=== PATIENT | female | born 1995 | race Caucasian/White ===

== ENCOUNTER 2016-11-14 22:02 | Outpatient (CLI) | payer BC, OTHER ==
[2016-11-14 23:47] LABS: APPEARANCE,URINE SLIGHTLY-CLOUDY; BILIRUBIN,URINE NEGATIVE (NEGATIVE); GLUCOSE, URINE NEGATIVE (NEGATIVE); KETONES,URINE NEGATIVE (NEGATIVE); LEUKOCYTE ESTERASE,URINE TRACE (NEGATIVE); NITRITE,URINE NEGATIVE (NEGATIVE); PROTEIN,URINE NEGATIVE (NEGATIVE); URINE SPECIFIC GRAVITY 1.028
[2016-11-14 23:48] LABS: CALCIUM OXALATE CRYSTALS,URINE TOO NUMEROUS TO CNT /HPF
[2016-11-15 00:12] LABS: URINE BARBITURATES SCREEN NEGATIVE; URINE METHADONE SCREEN NEGATIVE; URINE PHENCYCLIDINE SCREEN NEGATIVE
--- NOTE | 2016-11-15 04:47 | L&D Current Admission ---
Current Admit Datetime Report Generated by CPN: 11/15/2016 04:45 ADMISSION INFORMATION Chief Complaint: Vaginal Bleeding (11/14/2016 22:45:Carolina Domingo RN)
--- NOTE | 2016-11-15 04:47 | L&D Flow Sheet ---
LD Flowsheet Datetime Report Generated by CPN: 11/15/2016 04:45 Datetime: 11/15/2016 01:14 Additional Nursing Comments: pt stable, ambulatory, leaving unit accompanied by (Carolina Chayo, RN) Datetime: 11/15/2016 01:10 Teaching Instructional Method: Verbal; Written; Patient Instructed; Family/Support Person Instructed; Verbalized Understanding (Carolina Domingo RN) Plan of Care: Plan of Care Discussed (Carolina Domingo RN) Teaching Comments: labor care notes, round ligament pain care notes and [facility]A-approved medication list given. All pt and questions answered. Pt given renae bottle and ice packs for vaginal abrasion. Pt encouraged to move appointment scheduled for 11/27 up to next week. Pt encouraged to discuss HSV culture, constipation issues, and desire for elective primary c/s at upcoming appointment. (Carolina Domingo RN) Datetime: 11/15/2016 01:05 Patient Care Comments: HSV swab collected per orders from Dr Patrick (Carolina Domingo RN) Datetime: 11/15/2016 01:00 Communication Comments: Report to Dr Patrick re: cervical length 3.3 cm/closed, anterior placenta. Orders received for pt d/c to home with bleeding precautions and follow-up in office next week. (Carolina Chayo, RN) Datetime: 11/15/2016 00:40 Additional Nursing Comments: pt returned from u/s accompanied by WEBSPHERE MESSAGE BROKER DEVELOPER, monitors need not be reapplied per Dr Patrick (Carolina Chayo, RN) Datetime: 11/15/2016 00:16 Uterine Activity Monitor Mode: External (Carolina Chayo, RN) Frequency (min): None (Carolina Chayo, RN) Resting Tone (Palpate): Relaxed (Carolina Chayo, RN) Patient Care Comments: monitors discontinued, pt to u/s accompanied by WEBSPHERE MESSAGE BROKER DEVELOPER (Carolina Chayo, RN) Datetime: 11/15/2016 00:00 Uterine Activity Monitor Mode: External (Carolina Chayo, RN) Frequency (min): Irritability (Carolina Chayo, RN) Quality: Mild (Carolina Chayo, RN) Resting Tone (Palpate): Relaxed (Carolina Chayo, RN) Patient Care Procedures: Sterile Speculum Exam (Carolina Domingo RN) Provider Reviewed Strip: Yes (Carolina Domingo RN) Patient Care Comments: sterile speculum exam per Dr Patrick to visualize cervix prior to pt traveling to [facility]. Cervix visually closed and no bleeding from cervix noted by Dr Patrick. approx 1 cm long abrasion noted on right inner labia. Pt and suspect this was from intercourse this AM at 0900, pt noticed this spot afterwards. Will perform HSV swab on this spot per orders from Dr Patrick (Carolina Domingo RN) Communication Communication: Provider at Bedside (Carolina Domingo RN) Communication Comments: Dr Patrick at bedside (Carolina Domingo RN) Datetime: 11/14/2016 23:51 Patient Care Comments: pt sitting up in bed (Carolina Chayo, RN) Plan of Care: Plan of Care Discussed (Carolina Chayo, RN) Datetime: 11/14/2016 23:38 Communication Comments: call placed to u/s, estimated 30-40 minutes for pt to be seen (Carolina Chayo, RN) Datetime: 11/14/2016 23:30 Uterine Activity Monitor Mode: External (Carolina Chayo, RN) Frequency (min): Irritability (Carolina Chayo, RN) Quality: Mild (Carolina Chayo, RN) Duration (sec): 20-60 (Carolina Chayo, RN) Resting Tone (Palpate): Relaxed (Carolina Chayo, RN) Contraction Comments: Pt reports no discomfort (Carolina Chayo, RN) Datetime: 11/14/2016 23:03 Vital Signs NBP Sys/Aliza/Mean (mmHg): 107 (QS system process) : 60 (QS system process) : 79 (QS system process) Pulse: 78 (QS system process) Datetime: 11/14/2016 23:00 Uterine Activity Monitor Mode: External (Carolina Chayo, RN) Frequency (min): None (Carolina Chayo, RN) Resting Tone (Palpate): Relaxed (Carolina Chayo, RN) Datetime: 11/14/2016 22:51 Assessment A Comments: FHR doppler 146 (Carolina Chayo, RN) Datetime: 11/14/2016 22:45 Quality: abd soft (Carolina Chayo, RN) Pain Pain Scale: 0 (Carolina Chayo, RN) Pain Presence: None/Denies (Carolina Chayo, RN) Vaginal Exam Membrane Status: Intact (Carolina Chayo, RN) Vaginal Bleeding: Scant (Annotations: pt has not been wearing a pad, some blood when wiping throughout the day and some in underwear less than a dime sized; bleeding started today between 1438-4664) (Carolina Domingo RN) Maternal Assessment Level of Consciousness: Fully Conscious (Carolina Domingo RN) DTR's/Clonus: DTRs 2+; No Clonus (Carolina Domingo RN) Headache: Denies (Carolina Domingo RN) Nausea/Vomiting: Hx of Nausea/Vomiting (Annotations: zofran yesterday, some heaving the last few days ) (Carolina Domingo RN) RUQ Epigastric Pain: Denies (Carolina Domingo RN) Patient Position/Activity: Left Tilt (Carolina Domingo RN) Comfort Measures: Family Support (Carolina Domingo RN) Teaching Instructional Method: Verbal; Patient Instructed; Family/Support Person Instructed; Verbalized Understanding (Carolina Domingo RN) Plan of Care: Plan of Care Discussed (Carolina Domingo RN) Unit Routine: [place] to Room; Call Curiel; Bed (Carolina Domingo RN) Datetime: 11/14/2016 22:40 Communication Comments: Report to Dr Patrick re: pt presence, complaint. Orders received for u/s for placenta location/status and cervical length (Carolina Domingo RN)
--- NOTE | 2016-11-15 04:48 | L&D Discharge Summary ---
OB Discharge Summary Datetime Report Generated by CPN: 11/15/2016 04:45 DISCHARGE DIAGNOSIS Diagnosis/Symptoms: Vaginal Bleeding; False Labor Diagnoses/Symptoms Other: post-coital vaginal bleeding Gestation: 24.1 Parity: 0 DIET/ACTIVITY/RESTRICTIONS Diet: Regular Activity: Normal Activity TEACHING/INSTRUCTIONS/REFERRALS Instructions Given To: Pt, FOB Instructions Understood: Patient Verbalized Understanding; Support Person Verbalized Understanding Educational Materials- Other: labor, round ligament pain, [facility]A approved medication list DISCHARGE INFORMATION Discharged AMA: No Discharge Date/Time: 11/15/2016 01:14 Discharged To: Home Discharge Provider Name: Darnell Accompanied By: FOB Discharge Method: Ambulatory Condition: Stable FOLLOW UP INFORMATION Follow Up With: [facility] Follow Up On: As Scheduled Follow Up Phone Number: [facility] - Comments: See flowsheet for interventions, education, VS and lab results.
--- NOTE | 2016-11-15 04:48 | L&D General Admission ---
General Admit Datetime Report Generated by CPN: 11/15/2016 04:45 INFORMATION Patient Age: 21 (11/14/2016 22:14:QS system process) EDC: 03/05/2017 00:00 (11/14/2016 22:24:[facility], RN) : 2 (11/14/2016 22:24:Crystal Kaley, RN) Para: 0 (11/14/2016 22:24:Crystal Kaley, RN) CARE Primary Machine Maintenance Supervisor: [facility] (11/14/2016 22:24:Hetal Roche RN) Height (in): 60 (11/14/2016 22:34:QS system process) ALLERGIES Medication Allergy: Yes (11/14/2016 22:24:Carolina Domingo RN) Medication Allergies: hydrocodone (11/14/2016); egg (11/14/2016) (11/14/2016 22:33:QS system process) Latex Allergy: No Latex Allergies (11/14/2016 22:24:Carolina Domingo RN) Food Allergies: eggs (11/14/2016 22:24:Carolina Domingo RN) COMMUNICATION Primary Language: [place] Citizen (11/14/2016 22:24:Carolina Domingo RN) Medical Tx Preferred Language: [place] Citizen (11/14/2016 22:24:Carolina Domingo RN) DEMOGRAPHICS Address: [address] [place] [address] (11/14/2016 22:21:QS system process) Address: [place] [address] (11/14/2016 22:14:QS system process) Zipcode: [address] (11/14/2016 22:14:QS system process) Home (11/14/2016 22:21:QS system process) SSN: [id number] (11/14/2016 22:14:QS system process) Next of Kin Name: KHARI RAO (11/14/2016 22:21:QS system process) Next of Kin (11/14/2016 22:21:QS system process) Next of Kin Relationship: SPO (11/14/2016 22:21:QS system process) Date of : 1995 (11/14/2016 22:14:QS system process) Marital Status: (11/14/2016 22:21:QS system process) Sex: Female (11/14/2016 22:14:QS system process) Race: (11/14/2016 22:21:QS system process) Ethnicity: Non- or (11/14/2016 22:21:QS system process) Sabianist: None (11/14/2016 22:21:QS system process) DRUG AND ALCOHOL USE Alcohol: No (11/14/2016 22:24:Carolina Domingo RN) Cigarettes: Former Smoker. [id number] (11/14/2016 22:24:Carolina Domingo RN) Cigarette Comments: rare smoker prior to (11/14/2016 22:24:Carolina Domingo RN) Marijuana: No (11/14/2016 22:24:Carolina Domingo RN) Cocaine: No (11/14/2016 22:24:Carolina Domingo RN) Other Illicit Drugs: No (11/14/2016 22:24:Carolina Domingo RN) VACCINE HISTORY Influenza Vaccine: No (11/14/2016 22:24:Carolina Domingo RN) Influenza Date: egg allergy (11/14/2016 22:24:Carolina Domingo RN) Pneumococcal Vaccine: No (11/14/2016 22:24:Carolina Domingo RN) Tetanus Vaccine: Yes (11/14/2016 22:24:Carolina Domingo RN) Tdap Vaccine: Yes (11/14/2016 22:24:Carolina Domingo RN) Hepatitis B Vaccine: Yes (11/14/2016 22:24:Carolina Domingo RN) LABS Blood Type: A Positive (11/14/2016 22:24:Carolina Domingo RN) Antibody Screen: negative (11/14/2016 22:24:Carolina Domingo RN) Gonorrhea: Negative (11/14/2016 22:24:Carolina Domingo RN) Chlamydia: Negative (11/14/2016 22:24:Carolina Domingo RN) RPR/VDRL: Nonreactive (11/14/2016 22:24:Carolina Domingo RN) HIV Results: negative (11/14/2016 22:24:Carolina Domingo RN) Hepatitis B: Negative (11/14/2016 22:24:Carolina Domingo RN) Rubella: Immune (11/14/2016 22:24:Carolina Domingo RN) OB/PREVIOUS HISTORY History of Previous : No (11/14/2016 22:24:Carolina Domingo RN) History of Gestational Diabetes: No (11/14/2016 22:24:Carolina Domingo RN) History of PIH: No (11/14/2016 22:24:Carolina Domingo RN) History of Incompetent Cervix: No (11/14/2016 22:24:Carolina Domingo RN) History of Placenta Previa/Abrup: No (11/14/2016 22:24:Carolina Domingo RN) History of Macrosomia: No (11/14/2016 22:24:Carolina Domingo RN) History of IUGR: No (11/14/2016 22:24:Carolina Domingo RN) History of Hemorrhage: No (11/14/2016 22:24:Carolina Domingo RN) History of Loss/Stillborn: No (11/14/2016 22:24:Carolina Domingo RN) History of : No (11/14/2016 22:24:Carolina Domingo RN) History of D (Rh) Sensitization: No (11/14/2016 22:24:Carolina Domingo RN) History Recurrent Loss/Stillborn: No (11/14/2016 22:24:Carolina Domingo RN) History Depression/PP Depression: No (11/14/2016 22:24:Carolina Domingo RN) History of Uterine Anomaly/SAURABH: No (11/14/2016 22:24:Carolina Domingo RN) History of Infertility: No (11/14/2016 22:24:Carolina Domingo RN) History of ART Treatment: No (11/14/2016 22:24:Carolina Domingo RN) History of SAURABH: No (11/14/2016 22:24:Carolina Domingo RN) Comments Obstetrical History: G1: elective AB G2: current (11/14/2016 22:24:Carolina Domingo RN) MEDICAL HISTORY Med Hx Diabetes: No (11/14/2016 22:24:Carolina Domingo RN) Med Hx Hypertension: No (11/14/2016 22:24:Carolina Domingo RN) Med Hx Heart Disease: Yes (11/14/2016 22:24:Carolina Domingo RN) Med Hx Autoimmune Disorder: No (11/14/2016 22:24:Carolina Domingo RN) Med Hx Kidney Disease/UTI: Yes (11/14/2016 22:24:Carolina Domingo RN) Med Hx Neurologic/Epilepsy: Yes (11/14/2016 22:24:Carolina Domingo RN) Med Hx Psychiatric Disorders: No (11/14/2016 22:24:Carolina Domingo RN) Med Hx Hepatitis/Liver Disease: No (11/14/2016 22:24:Carolina Domingo RN) Med Hx Varicosities/Phlebitis: No (11/14/2016 22:24:Carolina Domingo RN) Med Hx Thyroid Dysfunction: Yes (11/14/2016 22:24:Carolina Domingo RN) Med Hx Trauma/Violence: No (11/14/2016 22:24:Carolina Domingo RN) Med Hx Blood Transfusion: No (11/14/2016 22:24:Carolina Domingo RN) Med Hx Pulmonary (Asthma,TB): Yes (11/14/2016 22:24:Carolina Domingo RN) Med Hx Breast: No (11/14/2016 22:24:Carolina Domingo RN) Med Hx DEICER TESTER Surgery: No (11/14/2016 22:24:Carolina Domingo RN) Med Hx Hospitalization/Surgery: Yes (11/14/2016 22:24:Carolina Domingo RN) Med Hx Anesthetic Complications: No (11/14/2016 22:24:Carolina Domingo RN) Med Hx Abnormal Pap Smear: Yes (11/14/2016 22:24:Carolina Domingo RN) Other Medical Diseases: Yes (11/14/2016 22:24:Carolina Domingo RN) Med Hx Significant Family Hx: No (11/14/2016 22:24:Carolina Domingo RN) Details of Med/Surg Hx: Heart: heart murmur, kidneys: cystitis neurologic: migranes thyroid: low TSH and thyroid cyst (is planning partial thyroidectomy after delivery) pulmonary: asthma, has rescue inhaler surgeries: kamron fundoplication surgery with 2 revisions;cholecystectomy; wisdom teeth removal; periesophageal hernia repair; tonsils and adenoids cyclic vomiting syndrome (CVS); chostochondritis- no meds; LGSIL 07/19 needs colpo after delivery; IBS, low vit D (11/14/2016 22:24:Carolina Domingo RN) INFECTIOUS HISTORY Inf Hx Gonorrhea: No (11/14/2016 22:24:Carloina Domingo RN) Inf Hx Chlamydia: No (11/14/2016 22:24:Carolina Domingo RN) Inf Hx Syphilis: No (11/14/2016 22:24:Carolina Domingo RN) Inf Hx HIV/AIDS: No (11/14/2016 22:24:Carolina Domingo RN) Inf Hx Human Papilloma Virus: No (11/14/2016 22:24:Carolina Domingo RN) Inf Hx Pt/Partner Genital Herpes: No (11/14/2016 22:24:Carolina Domingo RN) Inf Hx Tuberculosis/Exposure: No (11/14/2016 22:24:Carolina Domingo RN) Inf Hx Hepatitis B,C: No (11/14/2016 22:24:Carolina Domingo RN) Inf Hx Rash or Viral Illness: No (11/14/2016 22:24:Carolina Domingo RN) GENETIC HISTORY Gen Hx Age >=35 at NAVI: No (11/14/2016 22:24:Carolina Domingo RN) Gen Hx Thalassemia: No (11/14/2016 22:24:Carolina Domingo RN) Gen Hx Congenital Heart Defect: No (11/14/2016 22:24:Carolina Domingo RN) Gen Hx Neural Tube Defect: No (11/14/2016 22:24:Carolina Domingo RN) Gen Hx Down's Syndrome: No (11/14/2016 22:24:Carolina Domingo RN) Gen Hx Johnathan-Sachs: No (11/14/2016 22:24:Carolina Domingo RN) Gen Hx Mike: No (11/14/2016 22:24:Carolina Domingo RN) Gen Hx Familial Dysautonomia: No (11/14/2016 22:24:Carolina Domingo RN) Gen Hx Sickle Cell Disease/Trait: No (11/14/2016 22:24:Carolina Domingo RN) Gen Hx Hemophilia/Blood Disorder: No (11/14/2016 22:24:Carolina Domingo RN) Gen Hx Muscular Dystrophy: No (11/14/2016 22:24:Carolina Domingo RN) Gen Hx Cystic Fibrosis: No (11/14/2016 22:24:Carolina Domingo RN) Gen Hx [place] Chorea: No (11/14/2016 22:24:Carolina Domingo RN) Gen Hx Mental Retardation/Autism: No (11/14/2016 22:24:Carolina Domingo RN) Gen Hx Tested for Fragile X: No (11/14/2016 22:24:Carolina Domingo RN) Gen Hx Other Inher/Chromosomal: No (11/14/2016 22:24:Carolina Domingo RN) Gen Hx Maternal Metabolic DO: No (11/14/2016 22:24:Carolina Domingo RN) Gen Hx Pt Father or FOB Defect: No (11/14/2016 22:24:Carolina Domingo RN) Gen Hx Other Genetic History: No (11/14/2016 22:24:Carolina Domingo RN) Gen Hx Drugs/Meds since LMP: Yes (11/14/2016 22:24:Carolina Domingo RN) Gen Hx Medications: pnv, tylenol/benadryl/zofran/ albuterol prn, diclegis (11/14/2016 22:24:Carolina Domingo RN)
--- NOTE | 2016-11-15 04:48 | L&D Admission Assessment ---
LD ADM ASMT Datetime Report Generated by CPN: 11/15/2016 04:45 PATIENT ASSESSMENT Assessment Type: Triage (11/14/2016 22:45:Carolina Chayo, RN) WEIGHT Weight (lb): 143 (11/14/2016 22:34:QS system process) Weight (kg): 65.0 (11/14/2016 22:34:QS system process) PAIN Pain Scale: 0 (11/14/2016 22:45:Carolina Chayo, RN) Pain Presence: None/Denies (11/14/2016 22:45:Carolina Chayo, RN) CONTRACTIONS Frequency (min): None (11/15/2016 00:16:Carolina Chayo, RN) Frequency (min): Irritability (11/15/2016 00:00:Carolina Chayo, RN) Frequency (min): Irritability (11/14/2016 23:30:Carolina Chayo, RN) Frequency (min): None (11/14/2016 23:00:Carolina Chayo, RN) Duration (sec): 20-60 (11/14/2016 23:30:Carolina Chayo, RN) Quality: Mild (11/15/2016 00:00:Carolina Chayo, RN) Quality: Mild (11/14/2016 23:30:Carolina Chayo, RN) Quality: abd soft (11/14/2016 22:45:Carolina Chayo, RN) Resting Tone [place]: Relaxed (11/15/2016 00:16:Carolina Chayo, RN) Resting Tone [place]: Relaxed (11/15/2016 00:00:Carolina Domingo RN) Resting Tone [place]: Relaxed (11/14/2016 23:30:Carolina Domingo RN) Resting Tone [place]: Relaxed (11/14/2016 23:00:Carolina Domingo RN) Contraction Comments: Pt reports no discomfort (11/14/2016 23:30:Carolina Domingo RN) VAGINAL EXAM Membranes Status: Intact (11/14/2016 22:45:Carolina Domingo RN) NEURO Level of Consciousness: Fully Conscious (11/14/2016 22:45:Carolina Domingo RN) DTR's/Clonus: DTRs 2+; No Clonus (11/14/2016 22:45:Carolina Domingo RN) Headache: Denies (11/14/2016 22:45:Carolina Domingo RN) Dizziness: No (11/14/2016 22:45:Carolina Domingo RN) Blurred Vision: No (11/14/2016 22:45:Carolina Domingo RN) Extremity Numbness/Tingling : None (11/14/2016 22:45:Carolina Domingo RN) Extremity Movement: Full Range of Motion (11/14/2016 22:45:Carolina Chayo RN) CARDIOVASCULAR Heart Rhythm: Regular (11/14/2016 22:45:Carolina Dmoingo RN) Nailbeds: [place] (11/14/2016 22:45:Carolina Domingo RN) Capillary Refill: Less than 3 Seconds (11/14/2016 22:45:Carolina Domingo RN) Lower Extremities Edema: None (11/14/2016 22:45:Carolina Domingo RN) Lower Extremities Edema Degree: None (11/14/2016 22:45:Carolina Domingo RN) Upper Extremities Edema: None (11/14/2016 22:45:Carolina Domingo RN) Facial Edema: None (11/14/2016 22:45:Carolina Domingo RN) Davidson's Sign Left Leg: Negative (11/14/2016 22:45:Carolina Domingo RN) Davidson's Sign Right Leg: Negative (11/14/2016 22:45:Carolina Domingo RN) DVT RISK ASSESSMENT DVT Risk Age: Age less than 41 years (11/14/2016 22:45:Carolina Domingo RN) DVT Risk BMI: BMI<31 (11/14/2016 22:45:Carolina Domingo RN) DVT Risk Surgery: History of Prior Major Surgery (11/14/2016 22:45:Carolina Domingo RN) DVT Risk Other: Women Only- or (<1 month) (11/14/2016 22:45:Carolina Domingo RN) DVT Risk Total: 2 (11/14/2016 22:45:QS system process) DVT Risk Text: Moderate Risk (10-20%) - Consider stockings, compresssion device, pharmacological therapy per hospital policy (11/14/2016 22:45:QS system process) RESPIRATORY Respiratory Effort: Unlabored; Regular Rhythm; Equal Expansion (11/14/2016 22:45:Carolina Domnigo RN) Cough Productivity: None (11/14/2016 22:45:Carolina Domingo RN) GASTROINTESTINAL Nausea/Vomiting: Hx of Nausea/Vomiting (Annotations: zofran yesterday, some heaving the last few days ) (11/14/2016 22:45:Carolina Domingo RN) Bowel Sounds: Normoactive; All Quadrants (11/14/2016 22:45:Carolina Domingo RN) RUQ Epigastric Pain: Denies (11/14/2016 22:45:Carolina Domingo RN) Bowel Patterns: Constipation (11/14/2016 22:45:Carolina Domingo RN) Hemorrhoids: None (11/14/2016 22:45:Carolina Domingo RN) Diet Type: Regular diet (11/14/2016 22:45:Carolina Domingo RN) GENITOURINARY Bladder: Nondistended (11/14/2016 22:45:Carolina Domingo RN) Frequency of Urination: No (11/14/2016 22:45:Carolina Domingo RN) Urination Burning: No (11/14/2016 22:45:Carolina Domingo RN) CVA Tenderness: No (11/14/2016 22:45:Carolina Domingo RN) Vaginal Bleeding: None (11/14/2016 22:45:Carolina Domingo RN) Vaginal Discharge Color: N/A (11/14/2016 22:45:Carolina Domingo RN) INTEGUMENTARY Skin Color: Normal for Race (11/14/2016 22:45:Carolina Domingo RN) Skin Temperature: Warm (11/14/2016 22:45:Carolina Domingo RN) Skin Moisture: Dry (11/14/2016 22:45:Carolina Domingo RN) Surgical Scars: several (11/14/2016 22:45:Carolina Domingo RN) Body Piercings/Tattoos: yes (11/14/2016 22:45:Carolina Domingo RN) MARCEL SKIN ASSESSMENT Marcel Scale Sensory Perception: No Impairment- Responds to verbal commands. Has no sensory deficit which would limit ability to feel or voice pain or discomfort (11/14/2016 22:45:Carolina Domingo RN) Marcel Scale Moisture: Rarely Moist- Skin is usually dry. Linen only requires changing at routine intervals (11/14/2016 22:45:Carolina Domingo RN) Marcel Scale Activity: Walks Frequently- Walks outside the room at least twice a day and inside room at least every 2 hours during the day. (11/14/2016 22:45:Carolina Domingo RN) Marcel Scale Mobility: No Limitations- Makes major and frequent changes in position without assistance (11/14/2016 22:45:Carolina Domingo RN) Marcel Scale Nutrition: Excellent- Eats most of every meal. Never refuses a meal. Usually eats a total of 4 or more servings of meat and dairy products. Occasionally eats between meals. Does not require supplementation (11/14/2016 22:45:Carolina Domingo RN) Marcel Scale Friction and Shear: No Apparent Problem- Moves in bed and in chair independently and has sufficient muscle strength to lift up completely during move. Maintains good position in bed or chair at all times (11/14/2016 22:45:Carolina Domingo RN) Marcel Scale Total: 23 (11/14/2016 22:45:QS system process) Marcel Scale Risk: No Risk of Pressure Ulcer Noted at this Time (11/14/2016 22:45:QS system process) SUPPORT Family Support: Significant Other supportive, at bedside frequently (11/14/2016 22:45:Carolina Domingo RN) Emotional State: Calm/Relaxed (11/14/2016 22:45:Carolina Domingo RN) SAFETY Call Curiel Within Reach: Yes (11/14/2016 22:45:Carolina Domingo RN) Side Rails Up: Yes (11/14/2016 22:45:Carolina Domingo RN) Bed Wheels Locked: Yes (11/14/2016 22:45:Carolina Domingo RN) Arm Bands Present: Yes (11/14/2016 22:45:Carolina Domingo RN) FALL SCREEN Fall Risk History of Falling: (0) No (11/14/2016 22:45:Carolina Domingo RN) Fall Risk Secondary Diagnosis: (0) No (11/14/2016 22:45:Carolina Domingo RN) Fall Risk Ambulatory Aid: (0) None/Bedrest/Wheelchair/Nurse Assist (11/14/2016 22:45:Carolina Domingo RN) Fall Risk IV Therapy: (0) No (11/14/2016 22:45:Carolina Domingo RN) Fall Risk Gait: (0) Normal/Bedrest/Immobile (11/14/2016 22:45:Carolina Domingo RN) Fall Risk Mental Status: (0) Oriented to Own Ability (11/14/2016 22:45:Carolina Domingo RN) Fall Risk Score: 0 (11/14/2016 22:45:QS system process) Fall Risk Score Definition: No Risk: No action required (11/14/2016 22:45:QS system process) RECENT TRAVEL/INFECTIOUS DISEASE Recent Exp Communicable Disease: No (11/14/2016 22:45:Carolina Domingo RN) Cough or Fever: No (11/14/2016 22:45:Carolina Domingo RN) Foreign Travel Past 10 Days: No (11/14/2016 22:45:Carolina Domingo RN) Open Wounds or Sores: No (11/14/2016 22:45:Carolina Domingo RN) Prior Antibiotic Resistance Tx: No (11/14/2016 22:45:Carolina Domingo RN) Cultures Obtained: Not Applicable (11/14/2016 22:45:Carolina Domingo RN) Isolation Initiated: No (11/14/2016 22:45:Carolina Domingo RN) Pt/Family Education: Not Applicable (11/14/2016 22:45:Carolina Domingo RN)
--- NOTE | 2016-11-15 04:48 | Antepartum Discharge Summary ---
Antepartum DC Datetime Report Generated by CPN: 11/15/2016 04:45 DIET/ACTIVITY/RESTRICTIONS Diet: Regular (11/15/2016 01:14:Carolina Chayo, RN) Activity: Normal Activity (11/15/2016 01:14:Carolina Chayo, RN) TEACHING/INSTRUCTIONS/REFERRALS Instructions Given To: Pt, FOB (11/15/2016 01:14:Carolina Chayo, RN) Instructions Understood: Patient Verbalized Understanding; Support Person Verbalized Understanding (11/15/2016 01:14:Carolina Domingo RN) Educational Materials- Other: labor, round ligament pain, [facility] approved medication list (11/15/2016 01:14:Carolina Domingo RN) DISCHARGE INFORMATION Discharged AMA: No (11/15/2016 01:14:Carolina Domingo RN) Discharge Date/Time: 11/15/2016 01:14 (11/15/2016 01:14:Carolina Domingo RN) Discharged To: Home (11/15/2016 01:14:Carolina Domingo RN) Discharge Provider Name: Dr Patrick (11/15/2016 01:14:Carolina Domingo RN) Accompanied By: PIEDAD (11/15/2016 01:14:Carolina Domingo RN) Discharge Method: Ambulatory (11/15/2016 01:14:Carolina Domingo RN) Condition: Stable (11/15/2016 01:14:Carolina Domingo RN) FOLLOW UP INFORMATION Follow Up With: [facility] (11/15/2016 01:14:Carolina Domingo RN) Follow Up On: As Scheduled (11/15/2016 01:14:Carolina Domingo RN) Follow Up Phone Number: [facility] - (11/15/2016 01:14:Carolina Domingo RN) Comments: See flowsheet for interventions, education, VS and lab results. (11/15/2016 01:14:Carolina Domingo RN)
== END 2016-11-15 01:14 | disposition home or self-care (01) ==
LOC: EDSTATUS 22:14 → LC 22:21
PROVIDERS: ATTEND Student in an Organized Health Care Education/Training Program
PROC: 4A1HXCZ Monitoring of Products of Conception, Cardiac Rate, External Approach (ICD-10-PCS; principal; 2016-11-14)
DX: O46.92 Antepartum hemorrhage, unspecified, second trimester (principal); O26.892 Other specified pregnancy related conditions, second trimester; R10.2 Pelvic and perineal pain; Z3A.24 24 weeks gestation of pregnancy
CPT/HCPCS: 76815; 80307; 81001; 87250